=== PATIENT | female | born 1985 | race Caucasian/White ===

== ENCOUNTER 2017-08-17 20:22 | Emergency (ER) | payer SELFPAY ==
[2017-08-17 20:57] VITALS: BP 120/76; PULSE 87; RESP 16; TEMP 98.8; O2SAT 100
[2017-08-17 21:23] LABS: BASOPHIL % 0.2 % (0.0-2.0); EOSINOPHIL % 0.2 % (0.0-4.0); HEMATOCRIT 38.3 % (35.0-46.0); HEMOGLOBIN 13.1 GM/DL (11.6-15.3); LYMPH % 8.5 % (9.0-44.0); LYMPHOCYTE # 1.1 TH/MM3 (1.0-4.8); MEAN CELL VOLUME 87.5 FL (80.0-100.0); MEAN CORPUSCULAR HEMOGLOBIN 30.1 PG (27.0-34.0); MEAN CORPUSCULAR HGB CONC 34.3 % (32.0-36.0); MEAN PLATELET VOLUME 8.4 FL (7.0-11.0); MONO % 5.6 % (0.0-8.0); MONOCYTE # 0.7 TH/MM3 (0-0.9); NEUT % 85.5 % (16.0-70.0); PLATELET COUNT 183 TH/MM3 (150-450); RED BLOOD COUNT 4.37 MIL/MM3 (4.00-5.30); WHITE BLOOD COUNT 12.8 TH/MM3 (4.0-11.0)
[2017-08-17 21:49] LABS: ALBUMIN 4.2 GM/DL (3.4-5.0); ALT (GPT) 32 U/L (10-53); AST (GOT) 30 U/L (15-37); BICARBONATE 23.8 MEQ/L (21.0-32.0); BLOOD UREA NITROGEN 7 MG/DL (7-18); CALCIUM 9.4 MG/DL (8.5-10.1); CHLORIDE 108 MEQ/L (98-107); CREATININE 0.72 MG/DL (0.50-1.00); GLOMERULAR FILTRATION RATE 95 ML/MIN (>89); GLUCOSE,RANDOM 140 MG/DL (74-106); SODIUM (NA) 142 MEQ/L (136-145)
[2017-08-17 21:52] LABS: ALKALINE PHOSPHATASE 76 U/L (45-117); TOTAL BILIRUBIN ADULT 0.2 MG/DL (0.2-1.0); TOTAL PROTEIN 7.6 GM/DL (6.4-8.2)
--- NOTE | 2017-08-19 10:58 | PD ---
Physical Exam Date Seen by Provider: Aug 17, 2017 Time Seen by Provider: 21:00 Narrative 31-year-old female presents the ED for evaluation of 3 day history of right lower quadrant abdominal pain. Described as intermittent, cramping, worsened by eating today. Rated 4/10. Patient endorses nausea, chills. She denies dysuria, vaginal bleeding, vaginal discharge. She is unsure of the date of her last menstrual period. No treatment attempted at home. Data Data Last Documented VS Vital Signs Date Time Temp Pulse Resp B/P (MAP) Pulse Ox O2 Delivery O2 Flow Rate FiO2 08/17/17 20:57 98.8 87 16 120/76 (91) 100 Orders Orders Complete Blood Count With Diff (08/17/17 21:00) Comprehensive Metabolic Panel (08/17/17 21:00) Prothrombin Time / Inr (Pt) (08/17/17 21:00) Act Partial Throm Time (Ptt) (08/17/17 21:00) Ed Urine Pregnancytest Poc (08/17/17 21:00) Labs Laboratory Tests Test 08/17/17 21:07 White Blood Count 12.8 TH/MM3 Red Blood Count 4.37 MIL/MM3 Hemoglobin 13.1 GM/DL Hematocrit 38.3 % Mean Corpuscular Volume 87.5 FL Mean Corpuscular Hemoglobin 30.1 PG Mean Corpuscular Hemoglobin Concent 34.3 % Red Cell Distribution Width 13.0 % Platelet Count 183 TH/MM3 Mean Platelet Volume 8.4 FL Neutrophils (%) (Auto) 85.5 % Lymphocytes (%) (Auto) 8.5 % Monocytes (%) (Auto) 5.6 % Eosinophils (%) (Auto) 0.2 % Basophils (%) (Auto) 0.2 % Neutrophils # (Auto) 11.0 TH/MM3 Lymphocytes # (Auto) 1.1 TH/MM3 Monocytes # (Auto) 0.7 TH/MM3 Eosinophils # (Auto) 0.0 TH/MM3 Basophils # (Auto) 0.0 TH/MM3 CBC Comment DIFF FINAL Differential Comment Prothrombin Time 10.0 SEC Prothromb Time International Ratio 1.0 RATIO Activated Partial Thromboplast Time 25.0 SEC Blood Urea Nitrogen 7 MG/DL Creatinine 0.72 MG/DL Random Glucose 140 MG/DL Total Protein 7.6 GM/DL Albumin 4.2 GM/DL Calcium Level 9.4 MG/DL Alkaline Phosphatase 76 U/L Aspartate Amino Transf (AST/SGOT) 30 U/L Alanine Aminotransferase (ALT/SGPT) 32 U/L Total Bilirubin 0.2 MG/DL Sodium Level 142 MEQ/L Potassium Level 3.4 MEQ/L Chloride Level 108 MEQ/L Carbon Dioxide Level 23.8 MEQ/L Anion Gap 10 MEQ/L Estimat Glomerular Filtration Rate 95 ML/MIN MDM Supervised Visit with YVES: No Differential Diagnosis Appendicitis versus ovarian torsion versus ectopic versus other Narrative Course 31-year-old female presented to the ED for evaluation of 3 day history of 3/10 intermittent right lower quadrant abdominal pain. GENERAL: Well-nourished, well-developed white female no acute distress. SKIN: Focused skin assessment warm/dry. HEAD: Normocephalic. EYES: No scleral icterus. No injection or drainage. RESPIRATORY: No accessory muscle use. MUSCULOSKELETAL: No cyanosis, or edema. BACK: No obvious deformity. Lab work ordered and pending. Patient seen in the triage area, waiting medical bed. Patient was not in the waiting room when called for a medical bed. The patient left AGAINST MEDICAL ADVICE. Diagnosis Primary Impression: Left against medical advice Patient Instructions: General Instructions Departure Forms: Tests/Procedures Disposition: 07 AGAINST MEDICAL ADVICE Yelitza Stratton Aug 19, 2017 10:58
== END 2017-08-17 21:30 | disposition left against medical advice (07) ==
LOC: NED 20:22
DX: R10.31 Right lower quadrant pain (principal); R11.0 Nausea; R68.83 Chills (without fever)
CPT/HCPCS: 80053; 85025; 85610; 85730; 99283